=== PATIENT | female | born 1975 | race Caucasian/White ===

== ENCOUNTER 2016-11-18 02:10 | Inpatient (IN) | payer MEDICAID ==
[2016-11-18] MEDS ORDERED: LIDOCAINE 1% 300 MG/30 ML SDV ONE (03:46)
[2016-11-18] MEDS ORDERED: OXYTOCIN 10 UNIT/ML VIAL ONE (03:46)
[2016-11-18] MEDS ORDERED: LR 1,000 ML IV PRN (03:46)
[2016-11-18] MEDS ORDERED: OLIVE OIL 118 ML BTL ONE (03:46)
[2016-11-18] MEDS ORDERED: TERBUTALINE SULFATE 1 MG/ML VIAL ONE (03:46)
[2016-11-18] MEDS ORDERED: AMMONIA AROMATIC 1 EACH AMP IH ONE (03:46)
[2016-11-18] MEDS ORDERED: OLIVE OIL 118 ML BTL MISC PRN (03:46)
[2016-11-18] MEDS ORDERED: OXYTOCIN/RINGERS LACTATE 1,000 ML IV PRN (03:46)
[2016-11-18] MEDS ORDERED: TERBUTALINE SULFATE 1 MG/ML VIAL IV PRN (03:46)
[2016-11-18] MEDS ORDERED: EPSOM SALT 454 GM TP PRN (03:46)
[2016-11-18] MEDS ORDERED: MISOPROSTOL 200 MCG TAB ONE (03:47)
[2016-11-18] MEDS ORDERED: HYDROCORTISONE 0.5% CREAM TP PRN (04:44)
[2016-11-18] MEDS ORDERED: DOCUSATE SODIUM 100 MG CAP PO PRN (04:44)
[2016-11-18] MEDS ORDERED: SIMETHICONE 80 MG TAB CHEW PO PRN (04:44)
[2016-11-18] MEDS ORDERED: ACETAMINOPHEN 325 MG TAB PO PRN (04:44)
[2016-11-18] MEDS ORDERED: HYDROCODONE/APAP 5/325 TAB PO PRN (04:44)
--- NOTE | 2016-11-18 04:49 | OBDEL ---
Info Type: Vaginal GBS+: No Indications for Delivery: Spontaneous Labor, SROM Vaginal Delivery - Labor and Delivery Onset of Contractions Date: 11/17/16 Onset of Contractions Time: 22:00 Onset of Contractions Type: Spontaneous Rupture of Membranes Date: 11/18/16 Rupture of Membranes Time: 03:04 Rupture of Membranes Type: Spontaneous Amniotic Fluid Color: Clear Dilation Complete Date: 11/18/16 Dilation Complete Time: 03:59 Placenta Delivery Date: 11/18/16 Placenta Delivery Time: 04:14 Total Hours of Labor: 6 Laceration: Other (Specify) (bilateral periurethral repair of the left/ 4.0 vicryl vaginal tear repaired/ 3.0 vicryl left labial repaired with 3.0 vicryl) Repair: 3-0, 4-0, Vicryl Vaginal Sponge Count Correct: Yes Vaginal Needle Count Correct: Yes Vaginal Sweep Performed: No EBL: 400 Delivery Events: Nuchal Cord - Medications Labor Augmentation/Induction Methods Used: None Data [place] Delivery Date: 11/18/16 Delivery Time: 59 BATOOL: 11/18/16 Gestational Age: 40 week(s) and 0 day(s) Sex of : Male Score (1 Min): 8 Score (5 Min): 9 ICD10 Worksheet Patient Problems: Problems Problem Status Onset AMA (advanced maternal age) primigravida 35+ Acute Gestational diabetes Acute Spontaneous vaginal delivery Acute
[2016-11-18 05:15] LABS: ABSOLUTE IMMATURE GRANULOCYTES 0.21 10^3/uL (0.00-0.10); ADD DIFF? NO; ADD MORPH? NO; ADD SCAN? NO; ATYPICAL LYMPHOCYTE FLAG 0 (0-99); FRAGMENT RBC FLAG 0 (0-99); HEMATOCRIT 36.3 % (38.0-47.0); LEFT SHIFT FLG 10 (0-99); LIPEMIA HEMOLYSIS FLAG 80 (0-99); MEAN CELL HEMOGLOBIN 30.2 pg (27.9-34.1); MEAN CELL HEMOGLOBIN CONCENTR. 33.1 g/dL (32.4-36.7); MEAN CELL VOLUME 91.2 fL (81.5-99.8); MEAN PLATELET VOLUME 11.1 fL (8.7-11.7); PLATELET CLUMPS FLAG 0 (0-99); PLATELET COUNT 187 10^3/uL (150-400); RED BLOOD CELL COUNT 3.98 10^6/uL (4.18-5.33); RED CELL DISTRIBUTION WIDTH 14.1 % (11.5-15.2)
[2016-11-18] MEDS: IBUPROFEN 600 MG TAB PO PRN ×3 (05:20→17:46)
--- NOTE | 2016-11-18 05:28 | GHP ---
[f rep st] HISTORY AND PHYSICAL DATE OF ADMISSION: 11/18/2016 HISTORY OF PRESENT ILLNESS: The patient is a 40-year-old, 2, para 1, with an EDC of 017 which gives her a gestational age of 40 and 3/7th weeks. Significant other, Piero, and other [facility] members are with the patient on admission to Labor and Delivery. The patient comes in with compl aint of labor beginning on November 17 at 2200. Comes into the hospital at around 3 o'clock. At 3: 04, spontaneous rupture of membranes for clear fluid, feeling positive movement. Denied leaki ng before spontaneous rupture of membranes on admission to Labor and Delivery. Positive bloody show . Exam on admission was 6 cm. The patient has been receiving care since 8 weeks and 4 days. An ea rly ultrasound indicated gestational age appropriate and BATOOL was November 18, 2016. PAST MEDICAL HISTORY: Benign. PAST SURGICAL HISTORY: Tonsillectomy and wisdom teeth. SOCIAL HISTORY: Patient is to Piero, 1 child at home, the baby is 3 years old. No drug use. Denies alcohol use. Denies tobacco use. GYNECOLOGICAL HISTORY: Use of condoms, OCPs, NuvaRing, diaphragm in the past. 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 No colposcopies. The patient has had previous chlamydia 10 years ago. PREVIOUS HISTORY: September of 2013, a male, 7 pounds 5 ounces, 40 weeks, 50 hours of labor va ginally with an epidural. Previous GDM that was diet controlled. FAMILY HISTORY: Noncontributory. PHYSICAL ASSESSMENT: GENERAL: The patient is awake, alert, oriented x3. LUNGS: Clear bilaterally . ABDOMEN: Bowel sounds are positive in all 4 quadrants. DTRs 1+ bilaterally with no clonus. Pamela ans sign is negative. On admission, contractions were 2-3 minutes apart. Cervix was 6, 100 and 0 s tation. Almost immediately on admission patient ruptured her membranes and quickly 1-10 cm. LABS: Patient is A positive, antibody negative. RPR is nonreactive. Rubella is immune. Hepatitis is negative. HIV is negative. Trio screen in 04/2016 was negative. Pap, gonorrhea and chlamydia were negative. AFP was negative. Verifi was negative. One-hour GTT was within normal limits. PLAN OF CARE: 1. GBS negative. 2. Expectant management of labor. 3. Pain management at patient's request. 4. Consult physician, Dr. Flory Ibarra, as needed for plan of care. /[id number]/MODL
--- NOTE | 2016-11-18 13:17 | OBPP ---
Progress Note Assessment/Plan: Assessment: ppd # 0 s/p uncomplicated post course breast feeding Plan: routine post care 11/18/16 13:15 Subjective: patient is doing well. is tired. working on breast feeding. denies headache and changes in vision. normal lochia. ambulating. voiding without difficulty. Objective: 11/18/16 03:20 Patient ABO/Rh A POSITIVE 11/18/16 03:20 Temp Pulse Resp BP Pulse Ox 36.9 C 76 18 126/76 H 94 11/18/16 11:40 11/18/16 11:40 11/18/16 11:40 11/18/16 11:40 11/18/16 11:40 Uterine Position/Fundal Height: Umbilicus -2 Physical Exam - Physical Exam General Appearance: WD/WN, alert, no apparent distress Respiratory: chest non-tender, lungs clear, normal breath sounds Cardiac/Chest: normal peripheral pulses, regular rate, rhythm Abdomen: normal bowel sounds, non-tender Extremities: normal range of motion, non-tender, normal inspection, normal capillary refill Skin: normal color, warm/dry Neuro/Psych: no motor/sensory deficits, alert, normal mood/affect, oriented x 3
[2016-11-19] MEDS: IBUPROFEN 600 MG TAB PO PRN ×3 (06:35→20:48)
--- NOTE | 2016-11-19 11:11 | OBPP ---
Progress Note Assessment/Plan: Assessment: well pain well managed nipples intact FF@u scant rubra lochia perineum approximated voiding without difficulty Plan:pp day 1 expectant management 11/19/16 11:09 Subjective: Doing well. Denies difficulties. well. Pain well managed Objective: 11/19/16 06:40 Patient ABO/Rh A POSITIVE 11/18/16 03:20 Temp Pulse Resp BP Pulse Ox 36.2 C 91 18 108/48 L 96 11/19/16 08:00 11/19/16 08:00 11/19/16 08:00 11/19/16 08:00 11/19/16 08:00 Uterine Position/Fundal Height: At Umbilicus Uterine Tone: Firm Physical Exam - Physical Exam General Appearance: WD/WN, alert, no apparent distress Extremities: normal range of motion, Disha's sign (negative bilaterally) DTR- Lower Extremities: Knee (R): 1+, Knee (L): 1+ (no clonus) Skin: normal color, warm/dry Neuro/Psych: no motor/sensory deficits, alert, normal mood/affect, oriented x 3
[2016-11-20] MEDS: IBUPROFEN 600 MG TAB PO PRN ×2 (06:04→11:50)
[2016-11-20 08:40] VITALS: PULSE 78; RESP 16; TEMP 97.6; O2SAT 97
[2016-11-20 11:45] VITALS: BP 108/66
--- NOTE | 2016-11-20 11:52 | OBPP ---
Progress Note Assessment/Plan: Assessment: ppd # 2 s/p uncomplicated post course breast feeding Plan: routine post care discharge instructions and precautions 11/20/16 11:51 Subjective/ Course: 11/20/16 11:51 patient is doing well. pain is well controlled. normal lochia. denies headache and changes in vision. had one elevated blood pressure but was right after got phone call her infant son had not been picked up at day care. exhausted but doing well. breast feeding is going well. Objective: 11/19/16 06:40 Patient ABO/Rh A POSITIVE 11/18/16 03:20 Temp Pulse Resp BP Pulse Ox 36.4 C 78 16 108/66 97 11/20/16 08:00 11/20/16 08:00 11/20/16 08:00 11/20/16 11:45 11/20/16 08:00 Uterine Position/Fundal Height: Umbilicus -2 Uterine Tone: Firm Physical Exam - Physical Exam Neck: non-tender, full range of motion Respiratory: chest non-tender, lungs clear, normal breath sounds Cardiac/Chest: normal peripheral pulses, regular rate, rhythm Abdomen: normal bowel sounds, non-tender Extremities: normal range of motion, non-tender, normal inspection, normal capillary refill Skin: normal color, warm/dry Neuro/Psych: no motor/sensory deficits, alert, normal mood/affect, oriented x 3
--- NOTE | 2016-11-20 11:59 | OBGCSDC ---
General Delivery Information - General Info : 2 Para: 2 Type: Vaginal Admission Date: 11/18/16 Labs: Patient ABO/Rh A POSITIVE 11/18/16 03:20 Hct 27.3 % (38.0-47.0) L D 11/19/16 06:40 - Hospital Course Antepartum: 11/20/16 11:57 care a bwc at 8 weeks . negative verify. Intrapartum: 11/20/16 11:58 spontaneous labor. arrived 9 cm. SROM. bilateral periurethral lacerations : 11/20/16 11:51 patient is doing well. pain is well controlled. normal lochia. denies headache and changes in vision. had one elevated blood pressure but was right after got phone call her son had not been picked up at day care. exhausted but doing well. breast feeding is going well. Vaginal - Delivery Provider Delivery Physician/CNM: Mago Khan - Diagnosis Labor: Spontaneous Rupture of Membranes Type: Spontaneous Amniotic Fluid Color: Clear Laceration: Other (Specify) (bilateral periurethral repair of the left/ 4.0 vicryl vaginal tear repaired/ 3.0 vicryl left labial repaired with 3.0 vicryl) Repair: 3-0, 4-0, Vicryl Delivery Events: Nuchal Cord - Delivery EBL: [address] [place] Data [facility] Delivery Date: 11/18/16 Delivery Time: 03:59 BATOOL: 11/18/16 Gestational Age: 40 week(s) and 2 day(s) Sex of : Male Weight (gm): 0 g Score (1 Min): 8 Score (5 Min): 9 Discharge Information - Discharge Information Condition: Good Instruction/Follow Up: Four Weeks, Six Weeks
[2016-11-20] MEDS ORDERED: IRON POLYSAC/IRON HEME 28 MG TAB PO SCH (12:00)
== END 2016-11-20 13:30 | disposition home or self-care (01) | DRG 775 ==
LOC: FLD 02:10 → OBSVTOIN 03:46 → FOB 07:48
PROVIDERS: ADMIT Advanced Practice Midwife; ATTEND Obstetrics & Gynecology
DX: O48.0 Post-term pregnancy (principal); O71.82 Other specified trauma to perineum and vulva; O69.81X0 Labor and delivery complicated by cord around neck, without compression, not applicable or unspecified; Z3A.40 40 weeks gestation of pregnancy; Z37.0 Single live birth
CPT/HCPCS: J3105